=== PATIENT | female | born 1965 | race Caucasian/White ===

== ENCOUNTER 2023-03-19 11:10 | Emergency (ER) | payer SELFPAY ==
[~2023-03-19] VITALS: Ht 154.9 cm; Wt 58.9 kg
--- NOTE | 2023-03-19 11:46 | ED Psychosocial ---
General Stated Complaint: HALLUCINATIONS | TEETH AND GUM INFECTION Source: patient, family Exam Limitations: no limitations History of Present Illness Date Seen by Provider: Mar 19, 2023 Time Seen by Provider: 11:42 Initial Comments Patient is a 57-year-old female who presents ED with hallucinations. She reports visual and auditory hallucinations. She states she sees people at her house. She states she just talks to these people. Over the past 2 days she feels like somebody is trying to kill her. She had similar type hallucinations about a month ago but did resolve. She states she has been under high stress for the past 10 years. Lost her mother 5 years ago and since then has gradually declined. She does drink daily but denies over drinking. She does drink 2-3 beers a night or tequila or wine. She denies of any suicidal homicidal thoughts. According to family at bedside patient thought that her family were there at her house. She called family the next day and thanked them for being over at the house which they were not there. Patient is tearful. She does take Xanax as needed for anxiety. She is on phentermine for diet that she started 1 month ago. She does live by herself. She does smoke marijuana periodically. She denies of any headache, dizziness, visual loss, unilateral muscle weakness or sensory changes. She does report a cough over the past week. Flulike symptoms a week ago but those have improved. She denies any neck pain back pain, pain with urination frequent urination, chest pain, shortness of breath, abdominal pain. Denies history of cancer. She denies of any weight changes. She has been taking NyQuil but denies over taking the medication. She does report gum pain and swelling for several years. She has not follow-up with a dentist. She states she recently pulled out a tooth to her right upper molar recently. She denies any facial swelling or redness fever chills. Allergies and Home Medications Allergies Coded Allergies: Penicillins (Verified Allergy, Unknown, 03/19/23) Patient Home Medication List Home Medication List Reviewed: Yes Cephalexin (Cephalexin) 500 Mg Tablet, 500 MG PO TID Prescribed by: ANGEL ARSHAD on 03/19/23 1427 Cephalexin (Cephalexin) 500 Mg Tablet, 500 MG PO TID Prescribed by: ANGEL ARSHAD on 03/19/232135 Review of Systems Constitutional: No chills, No diaphoresis, No malaise, No weakness, No weight gain, No weight loss EENTM: No ear pain, No blurred vision, No double vision Respiratory: cough Cardiovascular: No chest pain, No edema Gastrointestinal: No RUQ, No abdominal pain, No diarrhea, No nausea, No vomiting Genitourinary: No decreased output, No discharge, No dysuria, No frequency Musculoskeletal: No back pain, No joint pain Skin: No change in color Psychiatric/Neurological: Other (Hallucinations) All Other Systems Reviewed Negative Unless Noted: Yes Physical Exam Vital Signs - First Documented 03/19/23 11:15 Temp 36.8 Pulse 101 Resp 18 B/P (MAP) 131/102 (112) Pulse Ox 100 O2 Delivery Room Air Capillary Refill : Height, Weight, BMI Height: '" Weight: lbs. oz. kg; BMI Method: General Appearance: WD/WN, no apparent distress HEENT: PERRL/EOMI, normal ENT inspection, TMs normal, pharynx normal Neck: non-tender, full range of motion, supple Respiratory: chest non-tender, lungs clear, normal breath sounds, no respiratory distress, no accessory muscle use Cardiovascular: regular rate, rhythm, no edema, no gallop, no JVD Gastrointestinal: normal bowel sounds, non tender, soft Extremities: normal range of motion, non-tender, normal inspection, no pedal edema Neurologic/Psychiatric: motion picture printer II-XII nml as tested, no motor/sensory deficits, alert, normal mood/affect, oriented x 3 Appearance/Memory: appropriate appearance, appropriate insight Behavior/Eye Contact: cooperative, good eye contact, normal speech Thoughts/Hallucinations: normal thought pattern, no apparent hallucination Skin: normal color, warm/dry Lymphatic: no adenopathy Progress/Results/Core Measures Results/Orders Lab Results My Orders Vital Signs/I&O Comment Sinus rhythm, short short FL interval, 95 bpm, QRS duration 74 MS, QTc 436 MS Departure Communication (PCP) Reviewed previous ER visits, H&P, lab testing. Differential diagnosis psychosis, drug-induced, brain lesion, infection, sepsis, delirious, UTI, medication reaction, metabolic encephalopathy. Patient with hallucinations auditory and visual. None currently. She is alert and orient x 4. GCS of 15. Patient able to have a fluent conversation. She is tearful and is requesting medical evaluation. Psych workup was initiated. Did add on a TSH, CT scan of the head. She does report using phentermine over the past month. She also uses Xanax as needed for anxiety. Reports marijuana use. Patient afebrile. Tachycardic at 101. Blood pressure 132/101. No focal neural deficits. Denies severe head pain dizziness visual changes unilateral muscle weakness or sensory changes. CT scan of the head was negative for acute abnormality but did note Scattered hypoattenuation within the periventricular and subcortical white matter most likely representing mild chronic small vessel ischemic disease. Chronic finding. Chest x-ray was negative for pneumonia. She refused COVID. CBC was grossly unremarkable. Normal TSH, kidney function liver function. Sodium 132, potassium 3.4. Urinalysis concerning for infection with leukocytes and white blood cells. She did receive Rocephin a liter of fluid. Drug screen positive for amphetamines, methamphetamines, marijuana. She denies methamphetamine use. She states she has been buying meth off the streets which may be laced with meth. No evidence of metabolic encephalopathy. she does have a urinary tract infection but she does not appear delirious or confused at this time suggesting cause of her symptoms. I did recommend a behavioral health assessment which was performed. Safety plan was provided. She states she has not been taking NyQuil but denies taking excessive amount. At this time rec ommend stopping phentermine, NyQuil or any type of drug substance at this time. She has appointment set up outpatient with [facility]. Will discharge with Keflex. Medically stable at this time. She will go home with family and stay at their house at this time. She does appear much better at this time however I recommend family continue monitoring her symptoms. No evidence of stroke. She does not appear septic. No active delirium. This appears to be more psych induced. Impression Primary Impression: UTI (urinary tract infection) Additional Impression: Hallucinations Disposition: 01 HOME, SELF-CARE Condition: Stable Departure-Patient Inst. Decision time for Depature: 14:27 Referrals: [facility] [place] NO,LOCAL PHYSICIAN (PCP) Primary Care Physician Patient Instructions: Urinary Tract Infection, Adult (DC) Add. Discharge Instructions: Recommend follow-up with PCP in 2 to 3 days for reevaluation with urinalysis and symptoms. Provide Keflex for UTI. Avoid any [id number] medication and phentermine at this time. Here is the number for [facility] [id number] Scripts Cephalexin (Cephalexin) 500 Mg Tablet 500 MG PO TID for 7 Days, #21 TAB Prov: ROZ SOTO 03/19/23 Cephalexin (Cephalexin) 500 Mg Tablet 500 MG PO TID for 7 Days, #21 TAB Prov: ROZ SOTO 03/19/23 ROZ SOTO Mar 19, 2023 11:46
[2023-03-19 11:58] LABS: BASOPHILS % (AUTO) 0 % (0-10); EOSINOPHILS # (AUTO) 0.1 10^3/uL (0.0-0.3); EOSINOPHILS % (AUTO) 1 % (0-10); HEMATOCRIT 39 % (35-52); HEMOGLOBIN 13.6 g/dL (11.5-16.0); LYMPHOCYTES # (AUTO) 1.4 10^3/uL (1.0-4.0); LYMPHOCYTES % (AUTO) 16 % (12-44); MEAN CORPUSCULAR HEMOGLOBIN 33 pg (25-34); MEAN CORPUSCULAR HGB CONC 35 g/dL (32-36); MEAN CORPUSCULAR VOLUME 94 fL (80-99); MEAN PLATELET VOLUME 9.4 fL (9.0-12.2); MONOCYTES # (AUTO) 0.6 10^3/uL (0.0-1.0); MONOCYTES % (AUTO) 6 % (0-12); NEUTROPHILS # (AUTO) 6.8 10^3/uL (1.8-7.8); NEUTROPHILS % (AUTO) 76 % (42-75); PLATELET COUNT 338 10^3/uL (130-400); WHITE BLOOD COUNT 8.9 10^3/uL (4.3-11.0)
[2023-03-19 12:11] LABS: CLARITY,URINE TURBID; COLOR,URINE YELLOW; GLUCOSE, URINE (UA) NEGATIVE (NEGATIVE); KETONES,URINE 2+ (NEGATIVE); NITRITE,URINE NEGATIVE (NEGATIVE); PROTEIN,URINE 2+ (NEGATIVE)
[2023-03-19 12:12] LABS: BACTERIA,URINE TRACE /HPF; BILIRUBIN,URINE 2+ (NEGATIVE); HYALINE CASTS, URINE 0-2 /LPF; LEUKOCYTE ESTERASE ,URINE 2+ (NEGATIVE); RBC,URINE 0-2 /HPF; WBC,URINE 50-100 /HPF
[2023-03-19 12:12] LABS: CHLORIDE 102 MMOL/L (98-107); POTASSIUM 3.4 MMOL/L (3.6-5.0); SODIUM 132 MMOL/L (135-145)
[2023-03-19 12:13] LABS: ALBUMIN 4.2 GM/DL (3.2-4.5)
[2023-03-19 12:14] LABS: AMPHETAMINE SCREEN, URINE POSITIVE (NEGATIVE); BARBITURATE SCREEN URINE NEGATIVE (NEGATIVE); CANNABINOID SCREEN, URINE POSITIVE (NEGATIVE); COCAINE SCREEN URINE NEGATIVE (NEGATIVE); METHADONE STAT NEGATIVE (NEGATIVE); OPIATE SCREEN URINE NEGATIVE (NEGATIVE); OXYCODONE STAT NEGATIVE (NEGATIVE); TRICYCLIC ANTIDEPRESSANTS SCRE NEGATIVE (NEGATIVE)
[2023-03-19 12:15] LABS: GLUCOSE 116 MG/DL (70-105); TOTAL PROTEIN 9.8 GM/DL (6.4-8.2)
[2023-03-19 12:16] LABS: CARBON DIOXIDE 21 MMOL/L (21-32)
[2023-03-19 12:17] LABS: BILIRUBIN,TOTAL 0.8 MG/DL (0.1-1.0)
[2023-03-19 12:19] LABS: ALKALINE PHOSPHATASE 79 U/L (40-136); CREATININE SERUM 0.89 MG/DL (0.60-1.30); GFR ESTIMATED 76
[2023-03-19] MEDS ORDERED: NS IV 1000 ML 1,000 ML IV STA (12:19)
[2023-03-19] MEDS ORDERED: cefTRIAXone IV/IM 1,000 MG in NS (IVPB) 50 ML 50 ML IV STA (12:19)
[2023-03-19 12:20] LABS: BUN/CREATININE RATIO 20
[2023-03-19 12:22] LABS: ALANINE AMINOTRANSFERASE 39 U/L (0-55); MAGNESIUM 1.8 MG/DL (1.6-2.4); SALICYLATE < 5.0 MG/DL (5.0-20.0)
--- NOTE | 2023-03-19 12:22 | Diagnostic Imaging Report ---
PROCEDURE: CT head without contrast. TECHNIQUE: Multiple contiguous axial images were obtained through the brain without the use of intravenous contrast. Auto Exposure Controls were utilized during the CT exam to meet ALARA standards for radiation dose reduction. INDICATION: Hallucinations. COMPARISON: None. FINDINGS: Scattered hypoattenuation within the periventricular and subcortical white matter. Generalized prominence of ventricles and cortical sulci. No intra- or extra-axial mass or fluid collection. No acute hemorrhage. The ventricles are normal in size, shape, and morphology. The almodovar-white matter junction is normal. The subarachnoid cisterns are patent. Scattered calcifications of the intracranial vasculature. Mucosal thickening within the bilateral maxillary sinuses.. The visualized portions of the orbits and globes are normal. The mastoid air cells are clear. The stranding machine operator topogram shows no lytic lesion or fracture. Impression: No acute intracranial hemorrhage. No large vascular territory chaudhry-white loss. No intracranial mass, midline shift, or hydrocephalus. Scattered hypoattenuation within the periventricular and subcortical white matter most likely representing mild chronic small vessel ischemic disease. Mild global volume loss. Mucosal thickening within the bilateral maxillary sinuses. Dictated by: Dictated on workstation # [id number]
[2023-03-19 12:23] LABS: CREATINE KINASE 149 U/L (29-168)
[2023-03-19 12:24] LABS: ACETAMINOPHEN < 10 UG/ML (10-30)
--- NOTE | 2023-03-19 12:35 | Diagnostic Imaging Report ---
CHEST 1 VIEW, AP/PA ONLY Indication: Cough Comparison: None available. Findings: No focal airspace disease in the visualized lungs. No pleural effusion or pneumothorax. Normal cardiomediastinal silhouette. Impression: 1. No acute cardiopulmonary process by portable radiography. Dictated by: Dictated on workstation # [id number]
[2023-03-19] MEDS ORDERED: CEPH500T PO ×2 (14:27→21:36)
[2023-03-19 15:37] VITALS: BP 141/97
== END 2023-03-19 15:37 | disposition home or self-care (01) ==
LOC: EDUNIT# 11:10 → ER 11:14
DX: R44.1 Visual hallucinations (principal); R44.0 Auditory hallucinations; N39.0 Urinary tract infection, site not specified; F41.9 Anxiety disorder, unspecified; Z79.899 Other long term (current) drug therapy; Z88.0 Allergy status to penicillin
CPT/HCPCS: 70450; 71045; 80053; 80306; 81000; 82550; 83735; 84443; 85025; 86141; 87088; 93005; 99284; G0480 ×3; 36415; 80320; 80329; 87077